=== PATIENT | male | born 1960 | race American Indian/Alaskan Native ===

== ENCOUNTER 2017-04-28 17:48 | Emergency (ER) | payer OTHER ==
--- NOTE | 2017-04-28 19:10 | XRay Report ---
FINAL REPORT PROCEDURE: XR SHOULDER 2+V RT TECHNIQUE: Three views of the right shoulder are obtained HISTORY: shoulder pain COMPARISON: No prior studies are available for comparison. FINDINGS: There is no fracture or dislocation. No arthritic changes are seen. IMPRESSION: No abnormalities are seen.
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
[2017-04-28] MEDS ORDERED: TORADOL ONE (21:05)
[2017-04-28] MEDS: TORADOL IM ONE (21:15)
[2017-04-28 21:19] VITALS: BP 129/72
== END 2017-04-28 21:19 | disposition home or self-care (01) ==
LOC: ED 17:48
DX: M25.511 Pain in right shoulder (principal); V49.49XA Driver injured in collision with other motor vehicles in traffic accident, initial encounter; X58.XXXA Exposure to other specified factors, initial encounter; Y93.9 Activity, unspecified; Y92.9 Unspecified place or not applicable; Y99.9 Unspecified external cause status; K21.9 Gastro-esophageal reflux disease without esophagitis
CPT/HCPCS: 73030; 96372; 99283; J1885